=== PATIENT | female | born 1935 | race Caucasian/White ===

== ENCOUNTER 2023-12-02 12:50 | Emergency (ER) | payer MEDICARE, OTHER, SELFPAY ==
[2023-12-02 13:02] VITALS: BP 120/69
[2023-12-02 13:28] LABS: % Basophils 0.2 % (0-2); % Eosinophils 0.4 % (0-6); % Immature Granulocytes 0.5 % (0-0.5); % Lymphocytes 6.9 % (20.5-51.1); % Monocytes 10.1 % (1.7-9.3); % Neutrophils 81.9 % (42.2-75.2); Absolute Immature Granulocytes 0.1 10^3/uL (0-0.05); Absolute Lymphocytes 0.7 10^3/uL (1.2-3.4); Absolute Neutrophils 8.3 10^3/uL (1.4-6.5); Hematocrit 38.3 % (37.0-47.0); Hemoglobin 12.4 g/dL (12.0-16.0); Mean Corp Hgb Conc. 32.4 g/dL (33.0-37.0); Mean Corpuscular Hgb 29.7 pg (27.0-31.0); Mean Corpuscular Volume 91.6 fL (81.0-99.0); Mean Platelet Volume 8.6 fL (7.4-10.4); Nucleated Red Blood Cells % 0 %; Platelet Count 226 10^3/uL (130-400); Red Blood Cell Count 4.18 10^6/uL (4.20-5.40); Red Cell Dist. Width 13.6 % (11.5-14.5); White Blood Cell Count 10.1 10^3/uL (4.8-10.8)
[2023-12-02 14:09] LABS: ALT (SGPT) 23 U/L (0-35); AST (SGOT) 37 U/L (14-36); Alkaline Phosphatase 141 U/L (38-126); Blood Urea Nitrogen 20 mg/dl (7-17); Calcium 9.6 mg/dl (8.4-10.2); Carbon Dioxide 26 mmol/L (22-30); Chloride 100 mmol/L (98-107); Glucose 104 mg/dl (70-99); Potassium 4.1 mmol/L (3.5-5.1); Sodium 137 mmol/L (135-145); Total Bilirubin 0.5 mg/dl (0.2-1.3); Total Protein 7.4 g/dl (6.3-8.2); eGFR 54.19
--- NOTE | 2023-12-02 17:39 | ED.GENMED ---
History of Present Illness
General
Chief Complaint: Heart Rate Problem
Time Seen by Provider: 12/02/23 17:26
Travel History
Have you had any contact with someone who has COVID-19?: No
Do you have any symptoms of coronavirus? Fever > 100 degrees, chills, cough, shortness of breath, sore throat, loss of taste or smell, muscle aches, or headache?: No
History of Present Illness
History of Present Illness:
88-year-old female presents to the emergency department for evaluation upon referral from her primary care physician due to concern for an abnormal EKG. Patient was started on oral antibiotics for a presumed pneumonia by her primary care physician,
has taken 2 doses of moxifloxacin thus far. She followed up with her doctor today for reevaluation where she was noted to have an irregular EKG and was referred to the emergency department for further evaluation. Patient denies any chest pain or
shortness of breath at this time
Review of Systems
Review of Systems
Allergies reviewed?: Yes
All Other Systems: ROS reviewed and negative except as documented in HPI and ROS
Phy Exam
Physical Exam
Physical Exam:
GEN: Well appearing, NAD, WDWN
HEENT: Oral mucosa moist, no scleral icterus
Cardiac: Regular rate and rhythm, subtle systolic murmur, known to the patient
Lung: No respiratory distress, no tachypnea, right base crackles rhonchi compatible with known right lower lobe pneumonia
MSK: No gross deformity or injuries
Skin: Good color, no pallor or jaundice, no rashes
Neuro: AO x3, moves all extremities freely
Psych: Calm, cooperative
Course
Orders/Labs/Results
Orders:
Orders
12/02/23 13:10
Electrocardiogram (*1) Urgent
Reason for Study: Tachycardia
12/02/23 13:11
EKG- Treatment ONCE
12/02/23 13:12
CR Chest - 2 Views Urgent
Comment:
Reason For Exam: sob cough
12/02/23 13:19
Complete Blood Count/With Diff Urgent
Comprehensive Metabolic Panel Urgent
Abnormal Lab Results
12/02/23
13:19
RBC 4.18 L 10^6/uL
(4.20-5.40)
MCHC 32.4 L g/dL
(33.0-37.0)
Abs Immat Gran (auto) 0.1 H 10^3/uL
(0-0.05)
Absolute Neuts (auto) 8.3 H 10^3/uL
(1.4-6.5)
Absolute Lymphs (auto) 0.7 L 10^3/uL
(1.2-3.4)
Absolute Monos (auto) 1.0 H 10^3/uL
(0.1-0.6)
Neutrophils % 81.9 H %
(42.2-75.2)
Lymphocytes % 6.9 L %
(20.5-51.1)
Monocytes % 10.1 H %
(1.7-9.3)
BUN 20 H mg/dl
(7-17)
Glucose 104 H mg/dl
(70-99)
AST 37 H U/L
(14-36)
Alkaline Phosphatase 141 H U/L
(38-126)
12/02/23 13:19
12/02/23 13:19
Vital Signs
Initial and Last Documented VS:
Initial Vital Signs
Temp Pulse Resp BP Pulse Ox
100.7 F H 110 20 120/69 95
12/02/23 13:02 12/02/23 13:02 12/02/23 13:02 12/02/23 13:02 12/02/23 13:02
Last Documented Vital Signs
Temp Pulse Resp BP Pulse Ox
100.7 F H 98 18 126/53 96
12/02/23 13:02 12/02/23 18:01 12/02/23 18:01 12/02/23 18:01 12/02/23 18:01
MDM/Problems Addressed
MDM/Problems Addressed:
I personally reviewed the EKG from primary care physician's office and this is altered by artifact however it is highly suspicious for sinus rhythm with PACs. EKG read taken in the emergency department and independently interpreted by myself
confirms a normal sinus rhythm with PACs. No concern for A-fib at this point. Patient looks clinically well and does not require IV antibiotics for the right lower lobe pneumonia
*Critical Care Note
Total Time (30-74mins, 75-104mins- exclusive of procedures): Not Applicable
ED Attending Note
-
Portions of this chart may have been created with voice recognition software.� Occasional wrong word or��sound alike� substitutions may have occurred due to the inherent limitations of voice recognition software.
Discharge Plan
Departure
Patient Disposition: Home (Routine Discharge)
Date of Disposition: 12/02/23
Time of Disposition: 17:39
Patient with high blood pressure during this ER visit?: No
Discharge Problem:
Right lower lobe pneumonia
Instructions: Pneumonia, Adult (DC)
Activity Restrictions/Additional Instructions:
Your EKG shows no evidence for A-fib
Interventions
Interventions:
*Risk Screen - Suicide Last Done: 12/02/23 13:06
*General Assessment Last Done: 12/02/23 13:06
*Neglect/Abuse Screening Last Done: 12/02/23 13:06
*Nursing Disposition Last Done: 12/02/23 18:02
ED- Cardiac Assessment Last Done: 12/02/23 18:01
ED- Pulmonary Assessment Last Done: 12/02/23 18:01
Discharge Date and Time
Discharge Date/Time: 12/02/23 18:03
Print Language: SAMMARINESE
[2023-12-02 18:01] VITALS: BP 126/53
== END 2023-12-02 18:03 | disposition home or self-care (01) ==
LOC: EMR 12:50
PROVIDERS: Emergency Medicine; EMERGENCY PHYSICIAN Emergency Medicine; FAMILY PHYSICIAN Internal Medicine
DX: J18.9 Pneumonia, unspecified organism (principal); R94.31 Abnormal electrocardiogram [ECG] [EKG]
CPT/HCPCS: 99283; 71046; 80053; 85025; 93005